=== PATIENT | male | born 1950 | race Two or more races ===

== ENCOUNTER 2017-06-23 12:16 | Emergency (ER) | payer SELFPAY ==
[~2017-06-23] VITALS: Ht 167.6 cm; Wt 81.6 kg
--- NOTE | 2017-06-23 12:18 | Emergency Room Report ---
History of Present Illness General Chief Complaint: Laceration Source: Patient, EMS Present Illness HPI 66-year-old male patient presents to ER BIB [facility] s/p ground-level fall. Reports patient mechanical and hit head on parking block. Reports small laceration on posterior head. Occurred about 30 minutes, fall observed by friend. Reports ETOH intoxication. Denies LOC, dizziness. Denies blood thinner medication. Denies fever, chest pain, SOB, SCHROEDER, vision changes, abdominal pain. Reports smoking cigarette. Denies drug use. Reports does not vaccination status. Allergies: Coded Allergies: No Known Allergies (Unverified , 06/23/17) Patient History Past Medical History: see triage record Reviewed Nursing Documentation: PMH: Agreed; PSxH: Agreed Nursing Documentation-PMH Past Medical History: No History, Except For History Of Psychiatric Problem: Yes - etoh abuse Review of Systems All Other Systems: negative except mentioned in HPI Physical Exam Vital Signs Date Time Temp Pulse Resp B/P (MAP) Pulse Ox O2 Delivery O2 Flow Rate FiO2 06/23/17 12:02 98.0 90 18 134/83 98 Room Air 98.1 Sp02 EP Interpretation: reviewed, normal General Appearance: well appearing, no apparent distress, alert, GCS 15, non- toxic Head: normocephalic, other - no skull depresion, negative Martins sign, negative Raccoon eyes Eyes: bilateral eye normal inspection, bilateral eye PERRL ENT: hearing grossly normal, normal pharynx, no angioedema, normal voice, TMs + canals normal - no hemotympanum, uvula midline, moist mucus membranes, other - white powder noted in left nostril, no clear discharge Neck: full range of motion, no bony tend Respiratory: lungs clear, normal breath sounds, no rhonchi, no respiratory distress, no accessory muscle use, no wheezing, speaking full sentences Cardiovascular #1: regular rate, rhythm, no edema Gastrointestinal: non tender, soft, no mass, non-distended, no guarding, no rebound Musculoskeletal: back normal, digits/nails normal, gait/station normal, normal range of motion, non-tender Neurologic: alert, oriented x3, responsive, motor strength/tone normal, sensory intact Psychiatric: mood/affect normal Skin: laceration - posterior scalp, 2 cm, superficial, dried blood present Procedures Laceration/Wound Repair Laceration/Wound Repair : Consent: Emergent Wound Location: head Wound's Depth, Shape: superficial Wound Length (cm): 2 Wound Explored: contaminated Irrigated w/ Saline (ccs): 10 Betadine Prep?: Yes Anesthesia: 1% Lidocaine Wound Debrided: extensive Wound Repaired With: artemio Number of Sutures: 5 Layer Closure?: No Sling Applied?: No Patient Tolerated: Well Complications: None Medical Decision Making PA Attestation Dr. Phoenix is my supervising Physician whom patient management has been discussed with. Diagnostic Impression: Primary Impression: Head trauma Additional Impression: Laceration ER Course Pt presents to ED c/o laceration on posterior scalp s/p fall. DDX considered but are not limited to laceration, abrasion, contusion, cellulitis, ICH, skull fracture. Ordered CT of head to rule out acute pathology. VITAL SIGNS are WNL, patient is afebrile Ordered CT head, lidocaine, TDAP. ED INTERVENTIONS: Wound was cleaned and copiously irrigated using normal saline, no FB removed. Local block using Lidocaine 1%. Laceration repaired with 5 artemio. Patient tolerated procedure well. Wound cleaned and covered using sterile dressing and Bacitracin. Keep dressing clean and dry. Followup for wound check and staple removal. Patient reports understanding and agreement to treatment plan. TDAP provided. CT head negative for acute disease, no ICH or mass effect. Patient AO x3, able to ambulate independently. Patient OK for discharge to home. Patient resting comfortably, in no acute distress, nontoxic appearing. DISCHARGE: Rx provided for Bacitracin Rx provided for Tylenol At this time pt is stable for d/c to home. Patient resting comfortably, in no acute distress, nontoxic appearing, talking without difficulty. Will provide with patient care instructions and any necessary prescriptions. Patient to take medication as instructed. Care plan and follow-up instructions provided. Work note provided to patient. Patient questions asked and answered. Patient instructed to follow-up with primary care provider in 1-3 days for wound check and 5-7 days for removal of artemio. Patient instructed to followup with PCP to discuss further treatment plan and ability to go to work, ER precautions given. Patient instructed to return to ER immediately for any new or worsening of symptoms. CT/MRI/US Diagnostic Results CT/MRI/US Diagnostic Results : Imaging Test Ordered: CT Head Impression Chronic and age-related changes. Negative for acute intracranial bleed or mass effect Last Vital Signs Date Time Temp Pulse Resp B/P (MAP) Pulse Ox O2 Delivery O2 Flow Rate FiO2 06/23/17 12:02 98.0 90 18 134/83 98 Room Air 98.1 Status: improved Disposition: HOME, SELF-CARE Condition: Stable Scripts Acetaminophen* (TYLENOL EXTRA STRENGTH*) 500 Mg Tablet 500 MG ORAL Q8H PRN for Prn Headache/Temp > 101, #30 TAB 0 Refills Prov: Fawad Valdes 06/23/17 Bacitracin/Polymyxin B Sulfate (BACITRACIN-POLYMYXIN OINTMENT) 28.35 Gm Oint...g. 1 APPLIC TP BID for 7 Days, GM Prov: Fawad Valdes 06/23/17 Patient Instructions: Head Injury, Adult, [id number], Laceration Care, Adult Additional Instructions: Patient instructed to follow-up with primary care provider in 1-3 days for wound check and 5-7 days for removal of artemio. Patient instructed to followup with PCP to discuss further treatment plan and ability to go to work, ER precautions given. Patient instructed to return to ER immediately for any new or worsening of symptoms. Take medications as directed. Patient questions asked and answered. ER precautions given, patient instructed to return to ER immediately for any new or worsening of symptoms including but not limited to chest pain, SOB, intractable vomiting, vision loss, vision changes, SCHROEDER. Fawad Valdes Jun 23, 2017 12:18
[2017-06-23] MEDS ORDERED: Tetanus/Diptheria/Pertussis Vaccine 0.5ml Syr IM ONE (12:30)
[2017-06-23] MEDS ORDERED: Lidocaine 1% MPF 10mg/ml 5ml INJ ONE (12:45)
--- NOTE | 2017-06-23 13:03 | Diagnostic Imaging Report ---
Indication: Reason For Exam: PAIN Technique: spiral acquisitions obtained through the brain. Angled axial and coronal 5 x 5 mm slices were reconstructed. No IV contrast utilized. Radiation dose was minimized using automated exposure control Total dose length product 1383.12 mGycm. CTDIvol(s) 70.38 mGy Comparison: none FINDINGS: No acute hemorrhage or edema. No mass effect or midline shift. There is age-related enlargement of the ventricles and extra axial CSF spaces. There is periventricular deep white matter ischemic change. Normal cyr-white differentiation. Visualized orbits are unremarkable. Visualized sinuses are unremarkable. Intact calvarium. There is mild right parietal scalp soft tissue swelling near the vertex IMPRESSION: Chronic and age-related changes. Negative for acute intracranial bleed or mass effect The CT scanner at [facility] is accredited by the [employer] and the scans are performed using protocols designed to limit radiation exposure to as low as reasonably achievable to attain images of sufficient resolution adequate for diagnostic evaluation
[2017-06-23] MEDS ORDERED: BACITRACIN-P28.35 GM TP (13:10)
[2017-06-23] MEDS ORDERED: TYLENOL EXTRA500 MG ORAL (13:10)
[2017-06-23] MEDS ORDERED: Bacitracin Oint UD TOPIC ONE ×2 (13:42→16:00)
[2017-06-23 14:28] VITALS: BP 130/84
== END 2017-06-23 14:31 | disposition home or self-care (01) ==
LOC: EDBD 12:16 → EMR 12:20
DX: S01.01XA Laceration without foreign body of scalp, initial encounter (principal); W19.XXXA Unspecified fall, initial encounter; Y92.89 Other specified places as the place of occurrence of the external cause; Z23 Encounter for immunization; R51 Headache
CPT/HCPCS: 70450; 90471; 90715; 99284

== ENCOUNTER 2017-06-26 19:55 | Emergency (ER) | payer SELFPAY ==
[~2017-06-26] VITALS: Ht 157.5 cm; Wt 61.2 kg
[~2017-06-26 19:55] MED LIST: BACITRACIN-P28.35 GM TP; TYLENOL EXTRA500 MG ORAL
[2017-06-26 20:10] VITALS: BP 127/83
--- NOTE | 2017-06-26 20:19 | Emergency Room Report ---
History of Present Illness General Chief Complaint: Wound Recheck/Suture Removal Source: Patient Present Illness HPI Patient presents 3 days after a scalp laceration with artemio. He is requesting of the artemio taken out. He denies any problems with that laceration. Just a little bit of pain there. The patient has original dressing on and wants this taken off. Pain rated 2/10, aching, not radiating. Initial injury was ground level fall. Some question of substance abuse. Patient denies this. No fevers, NVD, chest pain, dyspnea. Allergies: Coded Allergies: No Known Allergies (Unverified , 06/23/17) Patient History Past Medical History: see triage record Social History: Reports: smoking Social History Narrative homeless Reviewed Nursing Documentation: PMH: Agreed; PSxH: Agreed Nursing Documentation-PMH Past Medical History: No Stated History Review of Systems All Other Systems: negative except mentioned in HPI Physical Exam Vital Signs Date Time Temp Pulse Resp B/P (MAP) Pulse Ox O2 Delivery O2 Flow Rate FiO2 06/26/17 19:59 97.8 102 16 127/83 95 Room Air 97.9 Sp02 EP Interpretation: reviewed, normal General Appearance: well appearing, no apparent distress Head: normocephalic, other - wound scalp Eyes: bilateral eye normal inspection, bilateral eye PERRL ENT: hearing grossly normal, normal voice, moist mucus membranes Neck: full range of motion, supple, no bony tend Respiratory: no respiratory distress, speaking full sentences Musculoskeletal: no calf tenderness Neurologic: alert, normal gait, grossly normal Psychiatric: mood/affect normal Skin: wd healing/no infection noted Medical Decision Making Diagnostic Impression: Primary Impression: Encounter for post-traumatic wound check ER Course Patient presents 3 days after staple placement post head injury. Too early for artemio out. No complications or problems with wound at this time. Advised patient to return in 5 days to have artemio out, Patient stable for outpatient observation and treatment. Last Vital Signs Date Time Temp Pulse Resp B/P (MAP) Pulse Ox O2 Delivery O2 Flow Rate FiO2 06/26/17 21:00 102 16 127/83 95 Room Air 06/26/17 20:10 97.9 97.9 Status: improved Disposition: HOME, SELF-CARE Condition: Improved Scripts Bacitracin (Bacitracin) 28.4 Gm Oint...g. 1 APPLIC TOPIC BID, #14 GM Prov: Lalo Chawla M.D. 06/26/17 Lalo Chawla M.D. Jun 26, 2017 20:19
[2017-06-26] MEDS ORDERED: Bacitracin Oint UD TOPIC ONE (20:30)
[2017-06-26] MEDS ORDERED: BACITRACIN15 GM TOPIC (20:51)
[2017-06-26 21:00] VITALS: BP 127/83
== END 2017-06-26 21:00 | disposition home or self-care (01) ==
LOC: EMR 20:35
DX: S01.01XD Laceration without foreign body of scalp, subsequent encounter (principal); X58.XXXD Exposure to other specified factors, subsequent encounter; Z48.02 Encounter for removal of sutures
CPT/HCPCS: 99283

== ENCOUNTER 2017-07-25 16:09 | Emergency (ER) | payer SELFPAY ==
[~2017-07-25] VITALS: Ht 185.4 cm; Wt 65.8 kg
[~2017-07-25 16:09] MED LIST changes: +BACITRACIN15 GM TOPIC
[2017-07-25 16:39] VITALS: BP 132/81
--- NOTE | 2017-07-25 16:43 | Emergency Room Report ---
History of Present Illness General Chief Complaint: Wound Recheck/Suture Removal Source: Patient Present Illness HPI 66 yo male patient presents to ER requesting staple removal from scalp. Patient had artemio placed in scalp 3 weeks ago at [facility] [place]. Was previously seen in ER 3 days after initial staple placement for wound check , artemio were not removed at that time. Has not followed up with primary care provider since that time. Denies fever, chest pain, SOB. Allergies: Coded Allergies: No Known Allergies (Unverified , 06/23/17) Patient History Past Medical History: see triage record Reviewed Nursing Documentation: PMH: Agreed; PSxH: Agreed Nursing Documentation-PMH Past Medical History: No Stated History Review of Systems All Other Systems: negative except mentioned in HPI Physical Exam Vital Signs Date Time Temp Pulse Resp B/P (MAP) Pulse Ox O2 Delivery O2 Flow Rate FiO2 07/25/17 16:23 98.5 89 14 135/86 96 Room Air 98.4 Sp02 EP Interpretation: reviewed, normal General Appearance: well appearing, no apparent distress, alert, GCS 15, non- toxic Head: normocephalic, atraumatic Neck: full range of motion Respiratory: lungs clear, normal breath sounds, no rhonchi, no respiratory distress, no accessory muscle use, no wheezing, speaking full sentences Cardiovascular #1: regular rate, rhythm, no edema Musculoskeletal: back normal, digits/nails normal, gait/station normal, normal range of motion, non-tender Psychiatric: mood/affect normal Skin: other - healed laceration, scabbing present, no erythema, no edema, no drainage Medical Decision Making PA Attestation Dr. Phoenix is my supervising Physician whom patient management has been discussed with. Diagnostic Impression: Primary Impression: Removal of artemio ER Course Pt. presents to the ED requesting wound check of Ddx considered but are not limited to cellulitis, abscess, wound check, staple removal. Vital signs: are WNL, pt. is afebrile Ordered Bacitracin. ER COURSE: Wound has no signs of infection., no erythema, edema, TTP, sensation is intact to light touch. 5 artemio removed. No bleeding, patient tolerated procedure well. Bacitracin applied to wound. Apply Neosporin to wound to reduce appearance of scar. DISCHARGE: At this time pt. is stable for d/c to home. Patient resting comfortably, in no acute distress, nontoxic appearing. Will provide printed patient care instructions and any necessary prescriptions. Care plan and follow up instructions have been discussed with the patient prior to discharge. Patient instructed to follow-up with primary care provider for further treatment and referral. Patient questions asked and answered. ER precautions given. Patient instructed to return to ER immediately for any new or worsening of symptoms including but not limited to fever, worsening of pain symptoms. - Please note that this Emergency Department Report was dictated using [employer] technology software, occasionally this can lead to erroneous entry secondary to interpretation by the dictation equipment. Last Vital Signs Date Time Temp Pulse Resp B/P (MAP) Pulse Ox O2 Delivery O2 Flow Rate FiO2 07/25/17 16:39 98.2 68 14 132/81 97 Room Air 98.2 Disposition: HOME, SELF-CARE Condition: Stable Patient Instructions: Wound Care Additional Instructions: Patient instructed to followup with PCP to discuss further treatment plan. Take medications as directed. Patient questions asked and answered. ER precautions given, patient instructed to return to ER immediately for any new or worsening of symptoms including but not limited to chest pain, SOB, intractable vomiting, vision loss, vision changes, SCHROEDER. Fawad Valdes Jul 25, 2017 16:43
[2017-07-25 16:55] VITALS: BP 132/81
[2017-07-25] MEDS ORDERED: Bacitracin Oint UD TOPIC ONE (17:00)
== END 2017-07-25 16:55 | disposition home or self-care (01) ==
LOC: EMR 16:48
DX: Z48.02 Encounter for removal of sutures (principal)
CPT/HCPCS: 99282